=== PATIENT | female | born 1975 | race Two or more races ===

== ENCOUNTER 2018-11-06 09:30 | Inpatient (IN) | payer OTHER ==
[~2018-11-06] VITALS: Ht 152.4 cm; Wt 72.6 kg
== END 2018-11-12 09:47 | disposition home or self-care (01) | DRG 743 ==
LOC: EDSTATUS 09:30 → ADM 09:30 → O/R 11-10 05:21 → OB/GYN 11-10 05:21 → SURH 11-10 07:00 → OB/GYN 11-10 11:10
PROVIDERS: ADMIT Obstetrics & Gynecology
PROC: 0UT70ZZ Resection of Bilateral Fallopian Tubes, Open Approach (ICD-10-PCS; 2018-11-10)
PROC: 0UT90ZZ Resection of Uterus, Open Approach (ICD-10-PCS; principal; 2018-11-10 07:00)
DX: N93.8 Other specified abnormal uterine and vaginal bleeding (principal); D25.1 Intramural leiomyoma of uterus; N84.0 Polyp of corpus uteri; N72 Inflammatory disease of cervix uteri